=== PATIENT | female | born 1990 | race African-American/Black ===

== ENCOUNTER 2018-11-14 16:19 | Emergency (ER) | payer SELFPAY ==
[~2018-11-14] VITALS: Ht 167.6 cm; Wt 122.0 kg
[~2018-11-14 16:19] MED LIST: IBUP-974 PO
[2018-11-14 16:29] VITALS: BP 115/67
--- NOTE | 2018-11-14 16:37 | NUR ---
PATIENT AMBULATED TO BED 6.
--- NOTE | 2018-11-14 16:41 | NUR ---
C/O THROBBING R EAR PAIN / X1 WEEK, MUFFLED HEARING FROM R EAR. R TYMPANIC MEMBRANE IS WHITE ON VISUALIZATION, NO DISCHARGE NOTED. PT DENIED N/V/D/FEVER AND RECENT ILLNESS. PT REPORTS TAKING TYLENOL FOR PAIN WHICH PROVIDES TEMPORARY RELIEF. BED IN LOW POSITION.
--- NOTE | 2018-11-14 16:49 | NUR ---
ERMD AT BEDSIDE
[2018-11-14 17:12] VITALS: BP 115/67
--- NOTE | 2018-11-14 17:13 | NUR ---
Patient discharged with v/s stable. Written and verbal after care instructions given and explained. Patient alert, oriented and verbalized understanding of instructions. Ambulatory with steady gait. All questions addressed prior to discharge. ID band removed. Patient advised to follow up with PMD. Rx of motrin, cortisporin given. Patient educated on indication of medication including possible reaction and side effects. Opportunity to ask questions provided and answered.
== END 2018-11-14 17:13 | disposition home or self-care (01) ==
LOC: MED 16:19
DX: H60.91 Unspecified otitis externa, right ear (principal); J45.909 Unspecified asthma, uncomplicated; Z79.899 Other long term (current) drug therapy
CPT/HCPCS: 99283

== ENCOUNTER 2019-09-11 15:44 | Emergency (ER) | payer OTHER ==
[~2019-09-11] VITALS: Ht 167.6 cm; Wt 124.7 kg
--- NOTE | 2019-09-11 15:53 | NUR ---
PATIENT AMBULATED TO BED 9
[2019-09-11 15:54] VITALS: BP 130/78
--- NOTE | 2019-09-11 16:30 | NUR ---
JUANA RUDD AT BEDSIDE
[2019-09-11] MEDS ORDERED: LIDOCAINE MPF 1% 10 ML ONE (16:33)
[2019-09-11] MEDS: LIDOCAINE MPF 1% 10 MG/ML VIAL INJ ONE (16:41)
--- NOTE | 2019-09-11 16:45 | NUR ---
C/O PAIN TO L AXILLA AREA X4 DAYS. PT DENIES FEVER/N/V/D. PT DENIES INJURY. REDNESS NOTED TO L UNDERARM. BED IN LOW POSITION, SIDE RAIL UP X1.
--- NOTE | 2019-09-11 17:21 | NUR ---
Patient discharged with v/s stable. Written and verbal after care instructions given and explained. Patient alert, oriented and verbalized understanding of instructions. Ambulatory with steady gait. All questions addressed prior to discharge. ID band removed. Patient advised to follow up with PMD. Rx of KEFLEX, IBUPROFEN given. Patient educated on indication of medication including possible reaction and side effects. Opportunity to ask questions provided and answered.
== END 2019-09-11 17:21 | disposition home or self-care (01) ==
LOC: MED 15:44
DX: L02.412 Cutaneous abscess of left axilla (principal); J45.909 Unspecified asthma, uncomplicated; Z79.899 Other long term (current) drug therapy
CPT/HCPCS: 10060; 99284; J2001

== ENCOUNTER 2019-09-13 15:18 | Emergency (ER) | payer OTHER ==
[~2019-09-13] VITALS: Ht 167.6 cm; Wt 130.2 kg
[2019-09-13 15:27] VITALS: BP 138/75
[2019-09-13 16:27] VITALS: BP 138/75
== END 2019-09-13 16:28 | disposition home or self-care (01) ==
LOC: MED 15:18
DX: L02.412 Cutaneous abscess of left axilla (principal); J45.909 Unspecified asthma, uncomplicated; Z79.899 Other long term (current) drug therapy; Z48.00 Encounter for change or removal of nonsurgical wound dressing
CPT/HCPCS: 99282

== ENCOUNTER 2023-11-01 14:00 | Observation (INO) | payer OTHER ==
[~2023-11-01] VITALS: Ht 167.6 cm; Wt 119.3 kg
[2023-11-01] MEDS ORDERED: PREN-256 PO (15:41)
[2023-11-01] MEDS: NACL 0.9% 1,000 ML IV SCH (15:55)
[2023-11-01 16:29] LABS: BASOPHILS % (AUTO) 0.1 % (0.0-2.0); EOSINOPHILS # (AUTO) 0.1 K/uL (0-0.4); EOSINOPHILS % (AUTO) 1.6 % (0.0-4.0); HEMATOCRIT 32.8 % (36-48); HEMOGLOBIN 11.1 g/dL (12.0-16.0); LYMPHOCYTES # (AUTO) 2.1 K/uL (2.5-16.5); LYMPHOCYTES % (AUTO) 27.5 % (20.5-51.1); MEAN CORPUSCULAR HEMOGLOBIN 28 pg (27-31); MEAN CORPUSCULAR HGB CONC 34 g/dL (33-37); MEAN CORPUSCULAR VOLUME 81.8 fL (80-94); MONOCYTES # (AUTO) 0.6 K/uL (0.8-1.0); MONOCYTES % (AUTO) 7.6 % (1.7-9.3); NEUTROPHILS # (AUTO) 4.8 K/uL (1.8-7.7); NEUTROPHILS % (AUTO) 63.2 % (42.2-75.2); PLATELET COUNT (AUTO) 232 K/uL (140-450); RED CELL DISTRIBUTION WIDTH 13.6 % (11.6-13.7); WHITE BLOOD COUNT (AUTO) 7.6 K/uL (4.8-10.8)
[2023-11-01 16:43] LABS: ALBUMIN 2.6 g/dL (3.4-5.0); ANION GAP 12.8 (8-16); CALCIUM 8.4 mg/dL (8.5-10.1); CARBON DIOXIDE 24.8 mmol/L (21-32); CREATININE 0.6 mg/dL (0.6-1.3); POTASSIUM 3.6 mmol/L (3.5-5.1); TOTAL BILIRUBIN 0.3 mg/dL (0.0-1.0); TOTAL PROTEIN, SERUM 6.3 g/dL (6.4-8.2)
[2023-11-01] MEDS: ONDANSETRON 4 MG/2 ML VIAL IVP SCH (16:48)
[2023-11-01] MEDS: MORPHINE SULFATE 4 MG/ML SYR IVP SCH (16:49)
== END 2023-11-01 19:19 | disposition home or self-care (01) ==
LOC: MLD 14:00
PROVIDERS: ADMIT Obstetrics & Gynecology; ATTEND Obstetrics & Gynecology
DX: O99.891 Other specified diseases and conditions complicating pregnancy (principal); M54.9 Dorsalgia, unspecified; Z3A.34 34 weeks gestation of pregnancy
CPT/HCPCS: 36415; 80053; 81000; 85025; 87086; 96361; 96365; 96375; G0378; J0696; J2270; J2405; J7060